=== PATIENT | female | born 1995 | race Caucasian/White ===

== ENCOUNTER → 2020-11-25 14:08 | Outpatient (BNVA) | payer MEDICAID, SELFPAY | PROVIDERS: Visit Provider Advanced Practice Midwife | DX: Z34.01 Encounter for supervision of normal first pregnancy, first trimester (principal); Z3A.10 10 weeks gestation of pregnancy | CPT/HCPCS: 99212 ==

== ENCOUNTER 2020-12-11 14:30 | Outpatient (REF) | payer MEDICAID, SELFPAY ==
[2020-12-12 13:46] LABS: CT PCR NOT DETECTED (Not Detect.); NG PCR NOT DETECTED (Not Detect.)
[2020-12-13 15:18] LABS: BV Int Neg Control Negative (Negative); BV Int Pos Control Positive (Positive)
== END 2020-12-11 14:31 | disposition home or self-care (01) ==
LOC: HO.LAB 14:30
PROVIDERS: Visit Provider Advanced Practice Midwife
DX: Z34.01 Encounter for supervision of normal first pregnancy, first trimester (principal); Z20.2 Contact with and (suspected) exposure to infections with a predominantly sexual mode of transmission
CPT/HCPCS: 87480; 87491; 87510; 87591; 87660; 99212

== ENCOUNTER 2020-12-12 12:08 | Outpatient (REF) | payer MEDICAID, SELFPAY ==
--- NOTE | ~2020-12-12 | US_ITS ---
EXAMINATION: OBSTETRICAL ULTRASOUND, FIRST TRIMESTER HISTORY: A 25-year-old at 12.3 weeks of gestation NT screening COMPARISON: None TECHNIQUE: Real time transabdominal imaging with color and M-mode Doppler. FINDINGS: A single, live IUP CRL of 62.7 mm c/w 12.5wks is noted. Heart Rate: 158 beats per minute. Normal yolk sac seen. NT was 1.5.mm. NB Present The embryo appears sonographically wnl for this GA. Both maternal ovaries are seen and appear normal. GESTATIONAL AGE: 1. Established GA: 12.3 wks 2. GA from [facility]: 12.5 wks ESTIMATED DATE OF DELIVERY: 1. Established ARIES: 06/23/2021 2. ARIES from [facility]: 06/21/2021 US/US OB 1T nuc measure IMPRESSION: 1. A single live IUP 2. Size equals dates 3. NT of 1.47 mm MFM Consultation: I reviewed the ultrasound findings along with significance of NT measurement. The NT of less than 3mm is generally reassuring. However, the sensitivity for T21 detection is only 60%. I reviewed the availability of serum aneuploidy screening which includes cell-free DNA and placental protein based tests. I discussed the sensitivity, false-positive rate, and other limitations associated with each test. I also reviewed the availability of invasive diagnostic tests that are associated small but definite risk of miscarriage. We also reviewed the differences between screening tests and diagnostic tests. After our discussion, she opted for the First trimester screening that is based on cell-free DNA or non-invasive testing (NIPT). The result will be faxed to your office in approximately 7 days. A follow up at 18 weeks for survey has been scheduled. Thank you very much for this referral. Total time 30 minutes. The time spent was devoted to counseling the patient about the disease and diagnosis, coordinating care including reviewing her records, pertinent lab data and studies, as well as discussing diagnostic evaluation and workup, plan therapeutic interventions and future disposition of care. This includes any additional research needed to obtain further information in formulating the plan of care of this patient. This note was generated with a voice recognition program. Please excuse any errors which may have been overlooked during my review of this note. Sometimes these errors may affect the content or meaning of a given sentence.
[2020-12-12 15:58] LABS: Hematocrit 39.6 % (37-47); Hemoglobin 13.4 g/dl (12.0-16.0); Mean Corpuscular HGB Conc 33.8 g/dl (31.0-35.0); Mean Corpuscular Hemoglobin 29.7 pg (27.0-33.0); Mean Corpuscular Volume 87.8 fL (80-98); Mean Platelet Volume 10.7 fL (9.4-12.3); Platelet Count 210 X10*3/uL (160-400); Red Blood Count 4.51 X10*6/uL (4.20-5.50); Red Cell Distribution Width 12.2 % (11.0-16.0)
[2020-12-12 16:29] LABS: Amphetamine Screen Urine Not Detected (Not Detect); Barbiturates, Urine Not Detected (Not Detect); Benzodiazepines Screen Urine Not Detected (Not Detect); Cannabinoid Screen Urine Not Detected (Not Detect); Cocaine Screen Urine Not Detected (Not Detect); Fentanyl, urine Not Detected (Not Detect); Opiate Screen Urine Not Detected (Not Detect); Phencyclidine Screen Urine Not Detected (Not Detect)
[2020-12-12 16:39] LABS: Syphilis Screen Nonreactive (Nonreactive)
[2020-12-14 05:01] LABS: Rubella IgG Antibody 4.87 Index
[2020-12-15 04:27] LABS: HIV AB/AG Nonreactive (Nonreactive); HIV Num 1 0.08 S/CO (0.00-0.99); ~HepC Num1 0.07 S/CO (0.00-0.79); ~Hepatitis C Antibody Nonreactive (Nonreactive)
[2020-12-15 04:32] LABS: HBsAGNum1 0.14 S/CO (0.00-0.99); Hepatitis B Surface Antigen Negative (Negative)
[2020-12-19 20:02] LABS: HSV 1 IgM IFA Negative (Negative); HSV 2 IgM IFA Negative (Negative)
== END 2020-12-12 12:09 | disposition home or self-care (01) ==
LOC: HO.US 12:08
PROVIDERS: PCP Psychiatry & Neurology Psychiatry; Visit Provider Advanced Practice Midwife
DX: Z34.90 Encounter for supervision of normal pregnancy, unspecified, unspecified trimester (principal); Z36.82 Encounter for antenatal screening for nuchal translucency
CPT/HCPCS: 76813; 80307; 85027; 86695; 86696; 86762; 86780; 86787; 86803; 86850; 86900; 86901; 87086; 87340; 87389

== ENCOUNTER → 2021-01-15 14:13 | Outpatient (BNVA) | payer MEDICAID, SELFPAY | PROVIDERS: Visit Provider Advanced Practice Midwife | DX: Z34.02 Encounter for supervision of normal first pregnancy, second trimester (principal); Z3A.17 17 weeks gestation of pregnancy | CPT/HCPCS: 99212 ==

== ENCOUNTER 2021-01-30 08:32 | Outpatient (REF) | payer MEDICAID, SELFPAY ==
--- NOTE | ~2021-01-30 | US_ITS ---
EXAMINATION: US OBSTETRICAL CLINICAL INFORMATION: 25-year-old at the 19.3 weeks of gestation Screening for anomaly COMPARISON: 12/12/2020 TECHNIQUE: Real-time transabdominal ultrasound was performed using C1-5 megahertz transducer. FINDINGS: A single, active, fetus is seen in breech presentation. The placenta is posterior without previa, and the amniotic fluid volume is wnl. MEASUREMENTS: 1. Biparietal Diameter: 4.6 cm; 19.6 wks 2. Occipital Frontal Diameter: 6.3 cm 3. Head Circumference: 17.4 cm; 20.0 wks 4. Abdominal Circumference: 16.5 cm; 21.4 wks 5. Femur Length: 3.0 cm; 19.3 wks 6. Humerus Length: 3.13 cm; 20.3 wks 7. Tibia Length: 2.7 cm; 19.5 wks 8. Ulna Length: 3.1 cm; 21.4 wks 9. Lateral ventricle: 0.5 cm 10. Cerebellum: 2.0 cm; 20.3 wks 11. Cisterna Magna: 0.3 cm 12. Nuchal Fold: 4.7 mm 13. Heart Rate: 140 beats per minute Rt ovary: normal Lt ovary: normal Cervical length 3.3 cm on T/A. GESTATIONAL AGE: 1. Established GA: 19.3 wks 2. GA from [facility]: 20.2 wks ESTIMATED DATE OF DELIVERY: 1. Established ARIES: 06/23/2021 2. ARIES from [facility]: 06/17/2021 ANATOMY: The visualized anatomy includes but not limited to: 1. Cranium: Normal 2. Intracranial anatomy: cavum septum pellucidi, lateral ventricles, choroid plexus, cerebellum, posterior fossa, third and fourth ventricles. 3. face: orbits, lip/palate, profile, nasal bone 4. Heart: four-chamber view of the heart, ventricular septum, foramen ovale, pulmonary vein, left and right outflow tracts, three-vessel view, 3 vessel trachea view, aortic and ductal arches, situs.. 5. Diaphragm: Normal 6. Abdominal wall: Normal 7. Cord Insertion: Normal 8. Spine: Cervical, thoracic, lumbar, sacral. 9. Stomach: Normal size and shape 10. Right Kidney: Normal 11. Left Kidney: Normal 12. 3 vessel cord: Normal 13. Upper extremity: Open hands, fifth digit. 14. Lower extremity: Tibia, fibula, bilateral feet. 15. Bladder: Normal 16. Genitalia: Male, patient aware US/US OB /maternal detail IMPRESSION: 1. Single, living, intrauterine with appropriate biometry. 2. Normal survey DISCUSSION: I reviewed today's ultrasound findings. We discussed the limitations of ultrasound in diagnosing aneuploidy and other congenital abnormalities. I reviewed the differences between screening test and diagnostic test. Amniocentesis was discussed and declined. She was informed that the baseline incidence of congenital abnormalities is approximately 3-5%. Not all these conditions are diagnosable in utero. RECOMMENDATIONS: 1. When necessary. Thank you for allowing me to participate in her care. Total time 20 minutes. The time spent was devoted to counseling the patient about the disease and diagnosis, coordinating care including reviewing her records, pertinent lab data and studies, as well as discussing diagnostic evaluation and workup, plan therapeutic interventions and future disposition of care. This includes any additional research needed to obtain further information in formulating the plan of care of this patient. This note was generated with a voice recognition program. Please excuse any errors which may have been overlooked during my review of this note. Sometimes these errors may affect the content or meaning of a given sentence.
== END 2021-01-30 08:33 | disposition home or self-care (01) ==
LOC: HO.US 08:32
PROVIDERS: Visit Provider Advanced Practice Midwife
DX: Z34.92 Encounter for supervision of normal pregnancy, unspecified, second trimester (principal); Z36.3 Encounter for antenatal screening for malformations
CPT/HCPCS: 76811

== ENCOUNTER → 2021-02-12 15:17 | Outpatient (BNVA) | payer MEDICAID, SELFPAY | PROVIDERS: Visit Provider Obstetrics & Gynecology | DX: Z34.02 Encounter for supervision of normal first pregnancy, second trimester (principal); Z3A.21 21 weeks gestation of pregnancy | CPT/HCPCS: 99212 ==

== ENCOUNTER 2021-03-26 11:46 | Outpatient (REF) | payer MEDICAID, SELFPAY ==
[2021-03-26 13:21] LABS: Hematocrit 36.6 % (37.0-47.0); Hemoglobin 12.2 g/dl (12.0-16.0); Mean Corpuscular HGB Conc 33.3 g/dl (31.0-35.0); Mean Corpuscular Hemoglobin 30.3 pg (27.0-33.0); Mean Platelet Volume 11.2 fL (9.4-12.3); Platelet Count 196 X10*3/uL (160-400); Red Blood Count 4.02 X10*6/uL (4.20-5.50); Red Cell Distribution Width 12.9 % (11.0-16.0); White Blood Count 9.6 X10*3/uL (4.8-10.8)
[2021-03-27 08:20] LABS: HBc Num1 0.05 S/CO (0.00-0.79); HIV AB/AG Nonreactive (Nonreactive); HIV Num 1 0.12 S/CO (0.00-0.99); Hepatitis B Core Antibody Nonreactive (Nonreactive); ~HepC Num1 0.07 S/CO (0.00-0.79); ~Hepatitis C Antibody Nonreactive (Nonreactive)
[2021-03-27 08:33] LABS: Syphilis Screen Nonreactive (Nonreactive)
[2021-04-01 23:16] LABS: HSV 1 IgM IFA Negative (Negative); HSV 2 IgM IFA Negative (Negative)
== END 2021-03-26 11:47 | disposition home or self-care (01) ==
LOC: HO.LAB 11:46
PROVIDERS: PCP Registered Nurse Community Health; Visit Provider Advanced Practice Midwife
DX: O99.342 Other mental disorders complicating pregnancy, second trimester (principal); F32.A Depression, unspecified; O36.62X0 Maternal care for excessive fetal growth, second trimester, not applicable or unspecified; Z20.2 Contact with and (suspected) exposure to infections with a predominantly sexual mode of transmission; Z3A.27 27 weeks gestation of pregnancy
CPT/HCPCS: 36415; 85027; 86695; 86696; 86704; 86780; 86803; 87389; 99212

== ENCOUNTER 2021-03-27 13:45 | Outpatient (REF) | payer MEDICAID, SELFPAY ==
--- NOTE | ~2021-03-27 | US_ITS ---
EXAMINATION: OBSTETRICAL ULTRASOUND, Follow up HISTORY: 25-year-old at 27.3 weeks of gestation Size date discrepancy COMPARISON: 01/30/2021 TECHNIQUE: Real time transabdominal imaging with color and M-mode Doppler. PRESENTATION: Vertex PLACENTA LOCATION: Posterior without previa AMNIOTIC FLUID: EVELYN 17.1 cm MEASUREMENTS: 1. Biparietal Diameter: 7.22 cm; 29.0 wks 2. Head Circumference: 26.7 cm; 29.1 wks 3. Abdominal Circumference: 22.9 cm; 27.2 wks 4. Femur Length: 5.3 cm; 28.3 wks 5. Heart Rate: 142 beats per minute WEIGHT: EFW: 1146 grams (2 lbs 8 oz) -- 57 %. BIOPHYSICAL PROFILE: Motion: 2 Tone: 2 Breathin Amniotic Fluid: 2 Total score: 8/8 GESTATIONAL AGE: 1. Established GA: 27.3 wks 2. GA from A: 28.4 wks ESTIMATED DATE OF DELIVERY: 1. Established ARIES: 06/23/2021 2. ARIES from [facility]: 06/15/2021 US/US OB follow up IMPRESSION: 1. A single active fetus is in vertex presentation 2. Size equals dates 3. Reassuring BPP with normal EVELYN. Thank you very much for this referral. This note was generated with a voice recognition program. Please excuse any errors which may have been overlooked during my review of this note. Sometimes these errors may affect the content or meaning of a given sentence.
== END 2021-03-27 13:46 | disposition home or self-care (01) ==
LOC: HO.US 13:45
PROVIDERS: Visit Provider Advanced Practice Midwife
DX: O36.60X0 Maternal care for excessive fetal growth, unspecified trimester, not applicable or unspecified (principal)
CPT/HCPCS: 76816

== ENCOUNTER 2021-05-01 11:52 | Outpatient (REF) | payer MEDICAID, SELFPAY ==
[2021-05-01 18:59] LABS: Glucose 1 Hour PP 50gm Dose 84 mg/dL (60-140)
== END 2021-05-01 11:53 | disposition home or self-care (01) ==
LOC: HO.LAB 11:52
PROVIDERS: Advanced Practice Midwife; PCP Registered Nurse Community Health; Visit Provider Advanced Practice Midwife
DX: Z34.93 Encounter for supervision of normal pregnancy, unspecified, third trimester (principal); Z3A.32 32 weeks gestation of pregnancy
CPT/HCPCS: 36415; 81003; 99212

== ENCOUNTER → 2021-05-14 11:51 | Outpatient (BNVA) | payer MEDICAID, SELFPAY | PROVIDERS: Visit Provider Advanced Practice Midwife | DX: O26.893 Other specified pregnancy related conditions, third trimester (principal); Z3A.34 34 weeks gestation of pregnancy; M54.9 Dorsalgia, unspecified; M79.643 Pain in unspecified hand | CPT/HCPCS: 99212 ==

== ENCOUNTER 2021-06-01 11:29 | Outpatient (REF) | payer MEDICAID, SELFPAY | END 2021-06-01 11:30 | disposition home or self-care (01) | LOC: HO.LAB 11:29 | PROVIDERS: PCP Registered Nurse Community Health; Visit Provider Obstetrics & Gynecology | DX: Z34.93 Encounter for supervision of normal pregnancy, unspecified, third trimester (principal); Z23 Encounter for immunization; Z3A.36 36 weeks gestation of pregnancy | CPT/HCPCS: 87081; 87147; 90471; 99212 ==

== ENCOUNTER → 2021-06-11 13:29 | Outpatient (BNVA) | payer MEDICAID, SELFPAY | PROVIDERS: PCP Registered Nurse Community Health; Visit Provider Obstetrics & Gynecology | DX: Z34.03 Encounter for supervision of normal first pregnancy, third trimester (principal); Z3A.38 38 weeks gestation of pregnancy | CPT/HCPCS: 99212 ==

== ENCOUNTER 2021-08-04 14:00 | Outpatient (RCR) | payer MEDICAID, SELFPAY ==
--- NOTE | 2021-07-15 11:37 | MHC.PT.EP ---
[facility] [place] Office [place] Office [place] Office [address] Janine Mujica [address] [phone] F: [phone] F: [phone] F: [phone] F: [phone] Physical Therapy Plan of Care Date of Evaluation: Date of Surgery: Diagnosis: This is a 26 yo female presenting to skilled PT with a script for upper back pain Assessment: This is a 26 yo female presenting to skilled PT with a script for upper back pain. Patient is 3 wks post . Pain started during when she was sleeping on her sides. Now she continues to have upper back pain and cannot get comfortable in any position. Pain is located across B upper traps and shoulders as well as across the low back. Pain comes and go and is described as sharp. Pain increases most with laying down, picking up things, prolonged sitting and deep breathing (she is also currently breast feeding). Denies pain that radiates into UE but did have CTS during with some lingering symptoms still. She has not had PT in the past but did see the chiropractor. Assessment reveals pain that ranges up to a 10/10. She demos decreased shoulder and cervical ROM, decreased shoulder and cervical strength, impaired joint mobility as well as gross functional decline with posture, lifting and resting postures. She would also benefit from core stab, TRA ed and diaphragmatic breathing for low back pain. She is a good candidate for skilled PT 2x/wk for 5wks. Frequency and Duration: The patient will be seen 2x/wk for 5wks Short Term Goals: Improve L shoulder ROM by 10 degs Demo proper TrA without cues Demo diaphragmatic breathing without cues [employer] Goals: Demos functional ROM and strength Improve oswestry by at least 10 points Improve pain at the worst to no more than 2/10 Demo proper lifting techniques without increase in pain sleep through the night without waking from pain Treatment Plan: Modalities to reduce pain, spasms and effusion. Manual therapy to restore motion and function. Therapeutic exercise to improve strength and flexibility. Neuromuscular re-education for posture and balance. Therapeutic activities to return to functional activities of daily living. Electronically signed by: Emma Dubuc, PT Please sign and return to therapist. Thank you for your referral.
--- NOTE | 2021-07-16 10:58 | MHC.PT.EP ---
[facility] [place] Office [place] Office [place] Office [address] Janine Mujica [address] [phone] F: [phone] F: [phone] F: [phone] F: [phone] Physical Therapy Plan of Care Date of Evaluation: Date of Surgery: Diagnosis: This is a 26 yo female presenting to skilled PT with a script for upper back pain Assessment: This is a 26 yo female presenting to skilled PT with a script for upper back pain. Patient is 3 wks post . Pain started during when she was sleeping on her sides. Now she continues to have upper back pain and cannot get comfortable in any position. Pain is located across B upper traps and shoulders as well as across the low back. Pain comes and go and is described as sharp. Pain increases most with laying down, picking up things, prolonged sitting and deep breathing (she is also currently breast feeding). Denies pain that radiates into UE but did have CTS during with some lingering symptoms still. She has not had PT in the past but did see the chiropractor. Assessment reveals pain that ranges up to a 10/10. She demos decreased shoulder and cervical ROM, decreased shoulder and cervical strength, impaired joint mobility as well as gross functional decline with posture, lifting and resting postures. She would also benefit from core stab, TRA ed and diaphragmatic breathing for low back pain. She is a good candidate for skilled PT 2x/wk for 5wks. Frequency and Duration: The patient will be seen 2x/wk for 5wks Short Term Goals: Improve L shoulder ROM by 10 degs Demo proper TrA without cues Demo diaphragmatic breathing without cues Switch Adjuster Goals: Demos functional ROM and strength Improve oswestry by at least 10 points Improve pain at the worst to no more than 2/10 Demo proper lifting techniques without increase in pain sleep through the night without waking from pain Treatment Plan: Modalities to reduce pain, spasms and effusion. Manual therapy to restore motion and function. Therapeutic exercise to improve strength and flexibility. Neuromuscular re-education for posture and balance. Therapeutic activities to return to functional activities of daily living. Electronically signed by: Emma Dubuc, PT Please sign and return to therapist. Thank you for your referral.
== END 2021-08-28 14:36 | disposition home or self-care (01) ==
LOC: HO.PTCHIC 14:00
PROVIDERS: PCP Registered Nurse Community Health; Visit Provider Advanced Practice Midwife
DX: O26.893 Other specified pregnancy related conditions, third trimester (principal); M54.9 Dorsalgia, unspecified; M79.642 Pain in left hand
CPT/HCPCS: 97110; 97140; 97161

== ENCOUNTER 2024-11-15 16:35 | Outpatient (REF) | payer MEDICAID, SELFPAY ==
--- OUTSIDE RECORDS SUMMARY | 2024-11-15 09:30 | XMS_ITS | Encounter Summary ---
Author Organization [employer] Address [address] [place] [address] Care Team Providers Care Mason Tender Name Role Phone Serafin Beena KENNETH Primary Care Provider [phone] Reason for Visit * Reason Comments Annual Exam Pt concern with acne face,also very sweaty feet,itchy and peeling feet. Did by over the counter meds. Encounter Details Date Type Department Care Team (Late st Contact Info) Description 11/15/2024 9:30 AM EDT Office Visit [facility] [address] [place] [address] Swathi Wade, ANP [address] [place] [address] Tinea pedis of both feet (Primary Dx); Mild depression; Routine screening for STI (sexually transmitted infection) Social History Tobacco Use Types Packs/Day Years Used Date Smoking Tobacco: Never Smokeless Tobacco: Never Tobacco Cessation:Counseling Given: Not Answered Alcohol Use Standard Drinks/Week Comments Yes 0 (1 standard drink = 0.6 oz pur e alcohol) socially Alcohol Answer Date Recorded How often do you have a drink containing alcohol ? 1 10/20/2023 How many drinks containing a lcohol do you have on a typical day when you are drinking? 1 10/20/2023 How often do you have six or more drinks on one occasion? 0 10/20/2023 Depression Answer Date Recorded Patient Health Questionnaire-9 Score 8 11/15/2024 Patient Health Questionnaire-9 Score 8 11/15/2024 Last PHQ-9: Questionnaire Data Not on file 0 11/15/2024 Housing Stability Answer Date Recorded What is your housing situation today? I have layton hart 11/08/[address] you li ve. Do you have problems with any of the following? None of the above 11/08/2024 Food Insecurity Answer Date Recorded Within the past 12 months, y ou worried that your food would run out before you got money to buy more: Never True 11/08/2024 Within the past 12 months,th e food you bought just didn't last and you didn't have enough money to get more: Never True Transportation Answer Date Recorded In the past 12 months, has l ack of transportation kept you from medical appts, meetings, work or from getting things needed for daily living? No 11/08/2024 Utilities Answer Date Recorded In the past 12 months, has t he electric, gas, oil or water company threatened to shut off services in your home? Yes 11/08/2024 Depression Answer Date Recorded Patient Health Questionnaire-2 Score 2 11/15/2024 Internet Access Answer Date Recorded Internet Access Q1 Yes 11/08/2024 Internet Access Q2 Not on file 11/08/2024 Comments Unknown Sex and Gender Information Value Date Recorded Sex Assigned at Female 01/11/2022 10:37 AM EDT Legal Sex Female 10:37 AM EDT Gender Identity Female 01/11/2022 10:37 AM EDT Sexual Orientation Straight 01/11/2022 10 :37 AM EDT documented as of this encounter Last Filed Vital Signs Vital Sign Reading Time Taken Comments Blood Pressure 100/70 11/15/2024 9:46 AM EDT Pulse - - Temperature 36.2 C (97.2 F) 11/15/2024 9:46 AM EDT Respiratory Rate 16 11/15/2024 9:46 AM EDT Oxygen Saturation - - Inhaled Oxygen Concentration - - Weight 75.1 kg (165 lb 8 oz) 11/15/2024 9:46 AM EDT Height - - Body Mass Index 29.32 08/24/2021 12:06 AM EDT documented in this encounter Functional Status * Over the past 2 weeks, how often have you been bothered by any of the following problems? Question Answer Date of Assessment Author Patient Health Questionnaire -2 Score 2 11/15/2024 10:10 AM EDT Gem Torre [place] * Little interest or pleasure in doing things Answer Date of Assessment Author Several days 11/15/2024 10:10 AM EDT Gem Torre MA * Feeling down, depressed, or hopeless Answer Date of Assessment Author Several days 11/15/2024 10:10 AM EDT Gem Torre MA * Trouble falling or staying asleep, or sleeping too much Answer Date of Assessment Author Nearly every day 11/15/2024 10:10 AM EDT Gem Torre [place] * Feeling tired or having little energy Answer Date of Assessment Author More than half the days 11/15/2024 10:10 AM EDT Gem Torre MA * Poor appetite or overeating Answer Date of Assessment Author Several days 11/15/2024 10:10 AM EDT Gem Torre MA * Feeling bad about yourself - or that you are a failure or have let yourself or your family down Answer Date of Assessment Author Not at all 11/15/2024 10:10 AM Gem Gallagher [place] * Trouble concentrating on things, such as reading the newspaper or watching television Answer Date of Assessment Author Not at all 11/15/2024 10:10 AM EDT Gem Torre MA * Moving or speaking so slowly that other people could have noticed? Or the opposite - being so fidgety or restless that you have been moving around a lot more than usual. Answer Date of Assessment Author Not at all 11/15/2024 10:10 AM Gem Gallagher [place] * Thoughts that you would be better off or hurting yourself in some way Answer Date of Assessment Author Not at all 11/15/2024 10:10 AM Gem Gallagher MA * Patient Health Questionnaire-9 Score Answer Date of Assessment Author 8 11/15/2024 10:10 AM Gem Gallagher MA * How difficult have these problems made it for you to do your work, take care of things at home, or get along with other people? Answer Date of Assessment Author Very difficult 11/15/2024 10:10 AM Gem Gallagher MA documented as of this encounter Plan of Treatment Scheduled Orders Name Type Priority Associated Diagnoses Orde r Schedule Chlamydia/N. Gonorrhoeae RNA, TMA, Vagina Microbiology Routine Routine screening for STI (sexually transmitted infection) Ordered: 11/15/2024 Hepatitis C Antibody with Reflex to HCV, RNA, Quantitative, Real-Time PCR Lab Routine Routine screening for STI (sexually transmitted infection) Expected: 11/15/2024 (Approximate), Expires: 11/15/2025 HIV-1/2 Antigen and Antibodies, Fourth Generation, with Reflexes Lab Routine Routine screening for STI (sexually transmitted infection) Expected: 11/15/2024 (Approximate), Expires: 11/15/2025 Syphilis Screen Lab Routine Routine screening for STI (sexually transmitted infection) Expected: 11/15/2024 (Approximate), Expires: 11/15/2025 Chlamydia/N. Gonorrhoeae RNA, TMA, Throat Microbiology Routine Routine screening for STI (sexually transmitted infection) Expected: 11/15/2024 (Approximate), Expires: 11/15/2025 Chlamydia/N. Gonorrhoeae RNA, TMA, Rectal Microbiology Routine Routine screening for STI (sexually transmitted infection) Expected: 11/15/2024 (Approximate), Expires: 11/15/2025 documented as of this encounter Visit Diagnoses Diagnosis Tinea pedis of both feet- Primary Mild depression Depressive disorder, not elsewhere classified Routine screening for STI (sexually transmitted infection) Screening examination for venereal disease documented in this encounter Additional Health Concerns Assessment Noted Time PHQ-9 Depression Total Score: 8 11/16/19 25 10:10 AM EDT documented as of this encounter Care Teams Mason Tender Relationship Specialty Start Date End Date Beena Betancourt NP [address] [place] [id number] PCP - General Family Medicine 05/12/23 documented as of this encounter
--- OUTSIDE RECORDS SUMMARY | 2024-11-15 16:47 | XMS_ITS | Encounter Summary ---
Author Organization [employer] Address [address] [place] [address] Care Team Providers Care Composer Teaching Artist Name Role Phone Beena Betancourt KENNETH Primary Care Provider [phone] Encounter Details Date Type Department Care Team (Latest Contact Info) Description 11/15/2024 Travel Social History Tobacco Use Types Packs/Day Years Used Date Smoking Tobacco: Never Smokeless Tobacco: Never Alcohol Use Standard Drinks/Week Comments Yes 0 [...] AM EDT documented as of this encounter Functional Status * Over the [...] AM EDT Gem Torre MA * Trouble concentrating on things, such [...] 10:10 AM EDT Gem Torre [place] * Thoughts that you would be better off or hurting yourself in some way Answer Date of Assessment Author Not at all 11/15/2024 10:10 AM EDGem So MA * Patient Health Questionnaire-9 Score Answer Date of Assessment Author 8 11/15/2024 10:10 AM EDT Gem Torre [place] * How difficult have these problems made it for you to do your work, take care of things at home, or get along with other people? Answer Date of Assessment Author Very difficult 11/15/2024 10:10 AM EDT Gem Torre [place] documented as of this encounter Plan of Treatment Not on file documented as of this encounter Visit Diagnoses Not on filedocumented in this encounter Additional Health Concerns Assessment Noted Time PHQ-9 Depression Total Score: 8 11/16/19 25 10:10 AM EDT documented as of this encounter Care Teams Composer Teaching Artist Relationship Specialty Start Date End Date Beena Betancourt NP [address] [place] [id number] PCP - General Family Medicine 05/12/23 documented as of this encounter
--- OUTSIDE RECORDS SUMMARY | 2024-11-15 16:47 | XMS_ITS | Clinical Summary ---
Author Organization [facility] Address [address] [place] [address] Care Team Providers Care Rn Postpartum Name Role Phone Tino Quintanilla MD Primary Care Provider Unava ilable Allergies No known active allergies Medications Medication Sig Dispensed Refills Start Date End Date Status OCP, GENERIC, Take by mouth. 0 Active Active Problems Problem Noted Date Depression, major, in partial remission 03/16/2019 Family History Medical History Relation Name Comments Blindness Negative Hx Cataract Negative Hx Glaucoma Negative Hx Macular Degeneration Negative Hx Strabismus Negative Hx Social History Tobacco Use Types Packs/Day Years Used Date Smoking Tobacco: Never Smokeless Tobacco: Never Alcohol Use Standard Drinks/Week Comments Yes 0 (1 standard drink = 0.6 oz pur e alcohol) OCCASIONALLY Alcohol Habits Answer Date Recorded How often do you have a drink containing alcohol ? Monthly or less 03/01/2019 How many drinks containing a lcohol do you have on a typical day when you are drinking? 1 or 2 03/01/2019 How often do you have six or more drinks on one occasion? Never 03/01/2019 Sex Assigned at Date Recorded Not on file Last Filed Vital Signs Vital Sign Reading Time Taken Comments Blood Pressure 114/62 03/16/2019 2:11 PM EST Pulse 84 03/16/2019 2:11 PM EST Temperature 36.9 C (98.4 F) 03/16/2019 2:11 PM EST Respiratory Rate 14 03/16/2019 2:11 PM EST Oxygen Saturation - - Inhaled Oxygen Concentration - - Weight 63.5 kg (140 lb) 03/16/2019 2:11 PM EST Height 160 cm (5' 3 ) 03/16/2019 2:11 PM EST Body Mass Index 24.8 03/16/2019 2:11 PM EST Plan of Treatment Health Maintenance Due Date Last Done Comments Covid-19 Vaccine (#1) 1997 BASELINE HEALTH EXAM 18-39 2016 DTAP/TDAP/TD (1 - Tdap) 2016 CHOLESTEROL SCREENING 2017 CERVICAL CANCER SCREENING 2018 BMI CHECK/ADVISE 03/14/2024 INFLUENZA (#1) 2024 PNEUMOCOCCAL VACCINE FOR HIGH RISK PATIENTS (#1) 05/17 Care Teams Rn Postpartum Relationship Specialty Start Date End Date Tino Quintanilla MD PCP - General Internal Medicine 03/09/19
--- OUTSIDE RECORDS SUMMARY | 2024-11-15 16:47 | XMS_ITS | Encounter Summary ---
Author Organization [facility] Address [address] [place] [address] Care Team Providers Care Neonatologist Name Role Phone Olga Wolf MD Primary Care Provider Elizabeth Xie Primary Care Provider Tino Santiago MD Primary Care Provider Gil david Encounter Details Date Type Department Care Team Description 06/30/2017 Release of Information Medical Records [address] [place] [id number] Abstract, Provider Social History Tobacco Use Types Packs/Day Years Used Date Smoking Tobacco: Never Smokeless Tobacco: Never Alcohol Habits Answer Date Recorded How often do you have a drink containing alcohol ? Monthly or less 03/01/2019 How many drinks containing a lcohol do you have on a typical day when you are drinking? 1 or 2 03/01/2019 How often do you have six or more drinks on one occasion? Never 03/01/2019 Sex Assigned at Date Recorded Not on file documented as of this encounter Plan of Treatment Not on file documented as of this encounter Visit Diagnoses Not on filedocumented in this encounter Care Teams Neonatologist Relationship Specialty Start Date End Date Olga Wolf MD PCP - General Internal Medicine 06/29/1702/11 Elizabeth Drummond PCP - General Internal Medicine 03/01/19 03/08/19 Tino Quintanilla MD PCP - General Internal Medicine 03/09/19 documented as of this encounter
--- OUTSIDE RECORDS SUMMARY | 2024-11-15 16:47 | XMS_ITS | Encounter Summary ---
Author Organization [employer] Address [address] [place] [address] Care Team Providers Care Health Plan Specialist Name Role Phone Beena Betancourt KENNETH Primary Care Provider [phone] Encounter Details Date Type Department Care Team (Latest Contact Info) Description 11/14/2024 Travel Social History Tobacco Use Types Packs/Day [...] AM EDT documented as of this encounter Plan of Treatment Not on file documented as of this encounter Visit Diagnoses Not on filedocumented in this encounter Additional Health Concerns Assessment Noted Time PHQ-9 Depression Total Score: 7 10/19/19 24 4:13 PM EDT documented as of this encounter Care Teams Health Plan Specialist Relationship Specialty Start Date End Date Beena Betancourt NP [address] [place] [id number] PCP - General Family Medicine 05/12/23 documented as of this encounter
--- OUTSIDE RECORDS SUMMARY | 2024-11-15 16:47 | XMS_ITS ---
[facility] Name [facility] Organization Unknown Care Team Organization Name Specialty Phone Email Start Date End [facility] NO PCP Primary Care 12/07/2020 12/07/2020
--- OUTSIDE RECORDS SUMMARY | 2024-11-15 16:47 | XMS_ITS | Clinical Summary ---
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 Name Role Phone Pcp, No Primary Care Provider Unavailabl e Medications No known medications Social History Tobacco Use Types Packs/Day Years Used Date Smoking Tobacco: Never Assessed Comments Unknown Sex and Gender Information Value Date Recorded Sex Assigned at Not on file Legal Sex Female 5:14 PM EDT Gender Identity Not on file Sexual Orientation Not on file Last Filed Vital Signs Vital Sign Reading Time Taken Comments Blood Pressure 117/72 12/07/2020 5:40 PM EDT Pulse 89 12/07/2020 5:40 PM EDT Temperature 36.8 C (98.3 F) 12/07/2020 5:40 PM EDT Respiratory Rate 16 12/07/2020 5:40 PM EDT Oxygen Saturation 98% 12/07/2020 5:40 PM EDT Inhaled Oxygen Concentration - - Weight - - Height - - Body Mass Index - - Plan of Treatment Health Maintenance Due Date Last Done Comments Hepatitis C Virus Screening 1997 HIV Screening 2010 DTaP/Tdap/Td Vaccines (1 - Tdap) 2016 Hepatitis B Vaccines (1 of 3 - 19+ 3-dose series) 2016 Pap Smear (Ages 21-65) 2018 COVID-19 Vaccine ( - 2023-2 5 season) 2023 HPV Vaccines (1 - 3-dose SCD M series) 2024 Influenza Vaccine 10/12/2024 Pneumococcal Vaccine: Pediat angel (0-5 Years) and At-Risk Patients (6 to 49 Years) Aged Out No longer eligible b ased on patient's age to complete this topic Insurance [facility] Care Teams Lacing String Cutter Relationship Specialty Start Date End Date Pcp, No [address] [place] [address] PCP - General 12/07/20
--- OUTSIDE RECORDS SUMMARY | 2024-11-15 16:47 | XMS_ITS | Clinical Summary ---
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 clotrimazole (Lotrimin) 1 % creamIndication s:Tinea pedis of both feet Apply topically 2 times daily. 60 g 2 Active Active Problems Problem Noted Date Diagnosed Date Mild depression 10/20/2023 Assessment & Plan (10/20/2023 10:58 AM EDT): -mild depression notes with PHQ 9 screen -Patient Health Questionnaire-9 Score: 7 (10/19/2023 4:13 PM) Patient Health Questionnaire-2 Score: 4 (10/19/2023 4:13 PM) - clinician call to come speak with patient and offer assistance in connecting with therapist and coping strategies -follow-up 6 weeks via telephone or sooner as needed Bereavement, uncomplicated 10/20/2023 Skin lesion of breast 10/20/2023 Overview (01/17/2024): Skin tag removed 11/17/2023 from right breast by [facility] breast surgeons. Biopsy pending Patient is advised to begin breast imaging screaming at age 34/35 given mother's history of breast CA at age 49 which had already metastasized US completed 01/2024 with negative findings BiRADS 1 Assessment & Plan (10/20/2023 11:06 AM EDT): -reassuring physical exam -will obtain US and diagnostic Mammo breast CA given family history -referral to breast surgery for removal -will call with results Routine adult health maintenance 10/20/2023 Assessment & Plan (10/20/2023 11:05 AM EDT): -age appropriate screening and immunizations up to date (STI screening) -low cardiovascular risk -mental health screening negative -healthy social behaviors encouraged -anticipatory guidance reviewed: diet, exercise -reviewed options and various methods of control with patient. provided [email or web address] [facility] and encouraged to review options again and consider which would best meet her needs and overall contraception needs -may follow-up 3 years for PE or sooner as needed Resolved Problems Problem Noted Date Diagnosed Date Resolved Date Anxiety 10/20/2023 10/20/2023 Depression, major, in partial remission 03/16/2019 10/20/2023 Encounters Date Type Department Care Team Description 11/15/2024 9:30 AM EDT Office Visit [address] [address] Swathi Wade ANP Tinea pedis of both feet (Primary Dx); Mild depression; Routine screening for STI (sexually transmitted infection) 11/15/2024 Travel 11/14/2024 Travel 11/08/2024 Patient Outreach [address] [address] Beena Betancourt NP Care Coordination ([facility] outreach for SDOH housing search-referral completed ) 11/08/2024 Patient Outreach [address] [address] Beena Betancourt NP Pre-visit Planning (SDOH screening positve and tobacco screening negative) from Last 3 Months Immunizations Immunization Administration Dates Next Due DTP 05/24/2002, 9,1997,09/16,1997 HPV, Quadrivalent 07/06/2007,02/10/2007,11/10/19 07 Hep A, ped/adol, 2 dose 09/16/2016,11/13/2010 Hep B, Unspecified 1997,1997, 998 HiB, unspecified 1997,1997, 8 IPV 07/02/1998, 8,1997,07/17 Influenza live intranasal qu adrivalent LIAV4 11/13/2010 Influenza, IIV3, injectable 12/22/2011, 1,04/06/2006 MMR 05/24/2002,07/02/1998 Meningococcal ACWY, unspecified 09/16/2016,04/10 Meningococcal MCV4O 09/16/2016 Tdap 06/01/2021,02/19/2020 Varicella 11/09/2006,07/02/1998 Family History Medical History Relation Name Comments Breast cancer Mother Lupus Mother Relation Name Status Comments Mother Social History Tobacco Use Types Packs/Day Years [...] Orientation Straight 01/11/2022 10 :37 AM EDT Last Filed Vital Signs Vital Sign Reading Time Taken Comments Blood Pressure 100/70 11/15/2024 9:46 AM EDT Pulse 77 10/19/2023 2:58 PM EDT Temperature 36.2 C (97.2 F) 11/15/2024 9:46 AM EDT Respiratory Rate 16 11/15/2024 9:46 AM EDT Oxygen Saturation 98% 10/19/2023 2:58 PM EDT Inhaled Oxygen Concentration - - Weight 75.1 kg (165 lb 8 oz) 11/15/2024 9:46 AM EDT Height 160 cm (5' 3 ) 08/24/2021 12:06 AM EDT Body Mass Index 29.32 08/24/2021 12:06 AM EDT Plan of Treatment Health Maintenance Due Date Last Done Comments Family Planning (PISQ) 2012 Hepatitis A Vaccines (2 of 2 - 2-dose series) 03/19/2017 09/16/2016, 11/13/2010 Pap Smear 2018 COVID-19 Vaccine ( season) 2024 Influenza Vaccine (#1) 2024 2, 11/13/2010, 04/10/2010, Additional history exists SDOH Screening 11/08/2025 11/08/2024 Disability Screening 11/14/2025 11/14/2024 Alcohol/Substance Use Screening 11/15/2025 11/15/2024 Depression Screening 11/15/2025 11/15/2024, 09/04/20 25 Tobacco Screening 11/15/2025 11/15/2024 DTaP/Tdap/Td Vaccines (8 - Td or Tdap) 06/02/2031 06/01/2021, 02/19/2020, 05/24/2002, Additional history exists Zoster Vaccines (1 of 2) 05/18/2047 RSV Patients and Patients Aged 60 years or older (1 - 1-dose 75+ series) 2072 HIB Vaccines Aged Out 1997, 08/1997, 1997 No longer eligible based on patient's age to complete this topic Hepatitis B Vaccines Completed 1997, 1997, 1997 IPV Vaccines Completed 07/02/1998, 11/13, 1997, Additional history exists HPV Vaccines Completed 07/06/2007, 01/14, 11/09/2006 Meningococcal Vaccine Aged Out 09/16/2016 , 09/16/2016, 04/10/2010 No longer eligible based on patient's age to complete this topic HIV Screening Completed 03/26/2021 Hepatitis C Screening Completed 03/26/2021 Meningococcal B Vaccine Aged Out No l onger eligible based on patient's age to complete this topic Pneumococcal Vaccine: Pediatrics (0 to 5 Years) and At-Risk Patients (6 to 49) Years Aged Out No longer eligible based on patient's age to complete this topic RSV under 20 months Aged Out No longe r eligible based on patient's age to complete this topic Rotavirus Vaccines Aged Out No longer eligible based on patient's age to complete this topic Procedures Procedure Name Priority Date/Time Associated Diagnosis Comments MAT HISTORICAL HEPATITIS B CORE ANTIBODY Routine 03/26/2021 12:53 PM EST from Last 3 Months or Most Recently Relevant to Health Maintenance Results * HEPATITIS B CORE ANTIBODY (03/26/2021 12:53 PM EST) Pathologist [facility] Hepatitis B Core Antibody Nonreactive Nonreactive [facility] Hepatitis C Antibody Nonreactive Nonreactive [facility] Comment: Antibodies to HCV not detected; does not exclude early acute HCV infection. HIV AB/AG Nonreactive Nonreactive [facility] Comment: HIV-1 p24 Ag and/or HIV-1/HIV-2 Ab not detected. A test result that is nonreactive does not exclude the possibility of exposure to or infection with HIV-1 and/or HIV-2. Nonreactive results in this assay for individuals with prior exposure to HIV-1 and/or HIV-2 may be due to antigen and antibody levels that are below the limit of detection of this assay. The [employer] HIV Ag/Ab Combo assay result and supplemental assay results should be interpreted in conjunction with the patient's clinical presentation, history and other laboratory results. If the results are inconsistent with clinical evidence, additional testing is suggested to confirm the result. 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
[2024-11-16 07:48] LABS: CT PCR NOT DETECTED (Not Detect.); NG PCR NOT DETECTED (Not Detect.)
[2024-11-16 14:09] LABS: C. Trachomatis RNA TMA, Throat NOT DETECTED (NOT DETECTED); N. gonorrhoeae RNA TMA, Throat NOT DETECTED (NOT DETECTED)
[2024-11-16 17:44] LABS: C.Trachomatis RNA TMA, Rectal NOT DETECTED (NOT DETECTED); N.Gonorrhoeae RNA TMA, Rectal NOT DETECTED (NOT DETECTED)
== END 2024-11-15 16:36 | disposition home or self-care (01) ==
LOC: HO.HHCLNP 16:35
PROVIDERS: Visit Provider Nurse Practitioner Primary Care
DX: Z11.3 Encounter for screening for infections with a predominantly sexual mode of transmission (principal)
CPT/HCPCS: 87491; 87591